=== PATIENT | male | born 1930 | race Caucasian/White ===

== ENCOUNTER 2021-06-22 19:25 | Inpatient (IN) | payer MEDICARE, OTHER ==
[~2021-06-22] VITALS: Ht 175.3 cm; Wt 72.6 kg
[~2021-06-22 19:25] MED LIST: ACID REDUCER 1150 MG PO; METF500; NAPR220 PO; OMEP20ER PO; RANI150; Synthroid25 MCG PO; Zocor20 MG PO
[2021-06-22 20:25] LABS: BASOPHILS ABSOLUTE AUTO 0.04 K/mm3 (0.00-0.23); BASOPHILS PERCENT AUTO 1 % (0-2); EOSINOPHILS ABSOLUTE AUTO 0.51 K/mm3 (0.00-0.68); EOSINOPHILS PERCENT AUTO 7 % (0-6); Hematocrit 30.4 % (37.0-53.0); IMMATURE GRAN ABSOLUTE AUTO 0.02 K/mm3 (0.00-0.10); IMMATURE GRAN PERCENT AUTO 0 % (0-1); LYMPHOCYTES ABSOLUTE AUTO 2.11 K/mm3 (0.84-5.20); LYMPHOCYTES PERCENT AUTO 30 % (21-46); MONOCYTES ABSOLUTE AUTO 0.62 K/mm3 (0.16-1.47); MONOCYTES PERCENT AUTO 9 % (4-13); Mean Corpuscular HGB 31.7 pg (26.0-34.0); Mean Corpuscular HGB Conc 32.9 g/dL (31.5-36.5); Mean Corpuscular Volume 97 fL (80-100); Mean Platelet Volume 9.6 fL (9.1-12.4); NEUTROPHILS ABSOLUTE AUTO 3.65 K/mm3 (1.96-9.15); NEUTROPHILS PERCENT AUTO 53 % (41-73); Platelet Count 211 K/mm3 (150-400); RDW Standard Deviation 49.6 fL (35.1-46.3); Red Blood Cell Count 3.15 M/mm3 (4.30-5.90); White Blood Cell Count 6.95 K/mm3 (4.00-11.30)
[2021-06-22 20:48] LABS: Alanine Aminotransfer (ALT/SGP 24 U/L (12-78); Albumin, Blood 3.5 g/dL (3.4-5.0); Albumin/Globulin Ratio 1.3 (0.8-1.8); Alk Phos 43 U/L (50-136); Anion Gap 5 mmol/L (6-16); Aspartate Aminotrans (AST/SGOT 14 U/L (12-37); Bilirubin, Total 0.2 mg/dL (0.1-1.0); Blood Urea Nitrogen 33 mg/dL (8-24); Bun/Creatinine Ratio 29.2 (12.0-20.0); CO2, Blood 24 mmol/L (21-32); Calcium, Blood 8.2 mg/dL (8.5-10.1); Chloride, Blood 111 mmol/L (98-108); Creatinine, Blood 1.13 mg/dL (0.60-1.20); Globulin, Blood 2.6 g/dL (2.2-4.0); Glomerular Filtration Rate >60 (60-); Glucose, Blood 124 mg/dL (70-99); Potassium, Blood 4.1 mmol/L (3.5-5.5); Sodium, Blood 140 mmol/L (136-145); Total Protein, Blood 6.1 g/dL (6.4-8.2)
--- NOTE | 2021-06-23 02:34 | NUR ---
IV IS ACTUALLY IN THE R[facility] NOT THE R[facility]
--- NOTE | 2021-06-23 02:36 | NUR ---
0220 PT ARRIVED TO ROOM FROM ER IN STABLE CONDITION. DENIES ANY DISCOMFORT AT THIS TIME. DENIES NEED FOR ANYTHING AT THIS TIME. PT IS AAO TO SELF AND . PT HAS A MEMORY RECALL OF ABOUT 2 SECONDS. VERY CONFUSED TO WHERE HIS IS AND WHY HE IS HERE. BED ALARM IS ON.
--- NOTE | 2021-06-23 05:10 | NUR ---
0400 PT IS ONLY ORIENTED TO SELF AND FAMILY ONLY. PT REPEATEDLY GETS OOB WITHOUT CALLING. IS UNABLE TO REDIRECT AND UNABLE TO REMEMBER ANYTHING THAT HE IS TOLD PAST ABOUT 5 SECONDS. PT ALSO KEEPS TALKING ABOUT GOING HOME. PT PLACED IN VEST BETTE. CALL LIGHT IS IN REACH. BED ALARM IS ON.
--- NOTE | 2021-06-23 05:12 | NUR ---
0447 PT FIGURED OUT HOW TO UNTIE HIS VEST BETTE. FOUND PT OUT OF BED, IN THE BATHROOM WITH THE DOOR SHUT. PT WAS WEARING JUST HIS T SHIRT FROM HOME AND WAS WASHING HIS UNDERWEAR IN THE TOILET. GOT THE PT SOME CLEAN PULL UPS AND A BAG FOR HIS SOILED UNDIES. ASSISTED PT BACK INTO BED AND GOT WRIST RESTRAINTS ADDED TO HIS RESTRAINT ORDER. CALL LIGHT IS IN REACH. BED ALARM IS ON.
--- NOTE | 2021-06-23 05:14 | NUR ---
PT IS AAO TO SELF AND FAMILY ONLY, PT HAS ABOUT A 5 SECOND SHORT TERM MEMORY. PT REPEATEDLY GETS OUT OF BED WITHOUT CALLING FOR ASSIST AND TALKS ABOUT WANTING TO GO HOME. FOR PT'S SAFETY FOR HIGH FALL RISK AND RISK OF PT WANDERING OFF OF THE FLOOR, PT WAS PLACED IN A VEST BETTE AND WRIST RESTRAINTS.
--- NOTE | 2021-06-23 05:16 | NUR ---
PT LYING IN BED, PULLING ON RESTRAINTS. CALL LIGHT IS IN REACH. FLUIDS OFFERED. BED ALARM IS ON. NO OTHER CHANGES THIS SHIFT.
[2021-06-23 05:35] LABS: BASOPHILS ABSOLUTE AUTO 0.04 K/mm3 (0.00-0.23); BASOPHILS PERCENT AUTO 1 % (0-2); EOSINOPHILS ABSOLUTE AUTO 0.27 K/mm3 (0.00-0.68); EOSINOPHILS PERCENT AUTO 4 % (0-6); Hemoglobin 9.1 g/dL (13.5-17.5); IMMATURE GRAN ABSOLUTE AUTO 0.03 K/mm3 (0.00-0.10); IMMATURE GRAN PERCENT AUTO 0 % (0-1); LYMPHOCYTES ABSOLUTE AUTO 2.05 K/mm3 (0.84-5.20); LYMPHOCYTES PERCENT AUTO 26 % (21-46); MONOCYTES ABSOLUTE AUTO 0.73 K/mm3 (0.16-1.47); MONOCYTES PERCENT AUTO 9 % (4-13); Mean Corpuscular HGB 31.2 pg (26.0-34.0); Mean Corpuscular HGB Conc 32.5 g/dL (31.5-36.5); Mean Corpuscular Volume 96 fL (80-100); NEUTROPHILS ABSOLUTE AUTO 4.69 K/mm3 (1.96-9.15); NEUTROPHILS PERCENT AUTO 60 % (41-73); Platelet Count 207 K/mm3 (150-400); RDW Coefficient Variation 13.8 % (11.7-14.2); RDW Standard Deviation 48.9 fL (35.1-46.3); Red Blood Cell Count 2.92 M/mm3 (4.30-5.90); White Blood Cell Count 7.81 K/mm3 (4.00-11.30)
[2021-06-23 05:51] LABS: Anion Gap 9 mmol/L (6-16); Blood Urea Nitrogen 31 mg/dL (8-24); Bun/Creatinine Ratio 27.9 (12.0-20.0); CO2, Blood 21 mmol/L (21-32); Calcium, Blood 8.3 mg/dL (8.5-10.1); Chloride, Blood 110 mmol/L (98-108); Creatinine, Blood 1.11 mg/dL (0.60-1.20); Glomerular Filtration Rate >60 (60-); Glucose, Blood 109 mg/dL (70-99); Potassium, Blood 3.9 mmol/L (3.5-5.5); Sodium, Blood 140 mmol/L (136-145)
[2021-06-23 10:28] LABS: Hematocrit 26.9 % (37.0-53.0); Hemoglobin 8.6 g/dL (13.5-17.5)
[2021-06-23 13:33] LABS: Hematocrit 25.7 % (37.0-53.0); Hemoglobin 8.6 g/dL (13.5-17.5)
[2021-06-23 16:35] LABS: Hematocrit 27.4 % (37.0-53.0); Hemoglobin 8.9 g/dL (13.5-17.5)
--- NOTE | 2021-06-23 19:25 | NUR ---
SHIFT SUMMARY: NO ACUTE CHANGES. PT VERY FIDGETY AND TAKING CLOTHES ON AND OFF MULTIPLE TIMES. NOT FOLLOWING DIRECTIONS WELL. BETTE REMAINS IN PLACE. VITAL SIGNS STABLE. NEW IV IN PLACE IN LEFT UPPER ARM. NS RUNNING AT 75 ML/HR. CALL LIGHT IN REACH. REPORTED OFF TO ONCOMING RN
[2021-06-23 23:10] LABS: Source, Urine Clean Catch
[2021-06-23 23:12] LABS: Bilirubin, Urine Neg (Neg); Blood, Urine Neg (Neg); Glucose Qualitative, Urine Neg (Neg); Ketones, Urine Neg (Neg); Leukocyte Esterase, Urine Neg (Neg); Nitrite, Urine Neg (Neg); Protein, Urine Neg (Neg); Specific Gravity, Urine 1.005 (1.003-1.022); Urobilinogen, Urine NORM (Normal); pH, Urine 6.5 (5.0-8.0)
[2021-06-23 23:13] LABS: Appearance, Urine Clear (Clear); Color, Urine Yellow (P-Yellow)
--- NOTE | 2021-06-24 05:05 | NUR ---
SHIFT SUMMARY ASSUMED CARE OF PT AT 1900. PT IS A/O TO SELF AND FAMILY. PT IS VERY DIFFICULT TO REDIRECT AND HAS FLIGHT OF IDEAS. CALLED HOSPITALIST, WHO ORDERED 50MG OF SEROQUEL, THIS DID NOT WORK. PT WAS THEN HELPED TO THE BED WHERE HE HAD TO OF WRIST RESTRAINTS APPLIED ALONG WITH HIS BETTE SO THAT HE WOULD STOP PULLING THE BETTE OFF OVER HIS HEAD. HOSPITALIST NOTIFIED AGAIN WHEN PT WOULD BITE ON HIS RESTRIANTS TO LOOSEN THEM AND PULL HIS HAND OUT. HPSPITALIST ORDERED 5MG IM HALDOL, THIS ALSO HAD LITTLE EFFECT ON THE PT. PT DID NOT SLEEP AT ALL AND CONTINUED TO PULL ON THE RESTRAINTS. HEART SOUNDS REGULAR, LUNG SOUNDS DIMINISHED AT THE BASES. PT WAS CONTIENT TO THE BATHROOM AND THE URINAL. PT HAD NO BLOODY STOOLS OR BLOOD ON HIS ANUS. CALL LIGHT IN REACH, BED IN LOWEST POSTION, BED ALARM ON.
[2021-06-24 08:35] LABS: Hematocrit 20.5 % (37.0-53.0); Hemoglobin 6.8 g/dL (13.5-17.5)
[2021-06-24 18:04] LABS: SARS-Cov-2 (COVID-19) PCR, MMC NEGATIVE (NEGATIVE)
[2021-06-24 18:23] LABS: Hematocrit 30.6 % (37.0-53.0); Hemoglobin 10.2 g/dL (13.5-17.5)
--- NOTE | 2021-06-24 18:42 | NUR ---
PT SEVERELY CONFUSED AND SEVERELY IMPAIRED SHORT-TERM MEMORY; PT DOES NOT FOLLOW COMMANDS AND IS HIGHLY PHYSICALLY IMPULSIVE AND UNREDIRECTABLE, HOWEVER IS VERY POLITE AND PLEASANT; PT ON RA; VSS; RECEIVED 2 UNITS PRBC, FIRST INITIATED AT 1121 AND SECOND INFUSED BY 1530; AT BEDSIDE DURING VISITATION HOURS; PT RECEIVING BOWEL PREP; HALF CONSUMED PO OVER 2 HOURS WITH FREQUENT PROMPTING; NG TUBE INSERTED PER ORDER AT 1535; REST OF BOWEL PREP INSTILLED VIA TUBE; PT ASSISTED TO BSC ASSIST X1-2 SEVERAL TIMES FOR INCREASINGLY LOOSE AND CLEAR BUT RED BM; PT ALSO WAS INCONTINENT OF STOOL AND URINE SEVERAL TIMES IN AM WITH DARK CLOTTED BLOOD IN WATERY BM; PT'S REPORTS NO ADDITIONAL CONCERNS AT THIS TIME
--- NOTE | 2021-06-24 20:00 | NUR ---
PT TO DAYSURGERY BY [facility]. STAFF states colon prep results ARE WNL. History, Chart, Medications and Allergies reviewed before start of procedure. Lungs clear T/O to Auscultation. Patient confirms NPO status and agrees with scheduled surgery. Pre-Op teaching done.
--- NOTE | 2021-06-24 20:30 | NUR ---
06/24/21 2030 Matthias Contreras History, Chart, Medications and Allergies reviewed before start of procedure. MONITOR INTACT WITH CONTINUOUS PULSE OXIMETRY AND INTERMITTENT BP. 3-LEAD EKG REVIEWED WITH PHYSICIAN PRIOR TO START OF PROCEDURE. O2 VIA N/C INTACT THROUGHOUT SEDATION/PROCEDURE. PATIENT DETERMINED TO BE ASA APPROPRIATE FOR PROPOFOL SEDATION PRIOR TO START OF PROCEDURE BY DR. MCMAHON.
--- NOTE | 2021-06-24 20:49 | NUR ---
NGT DC'D PER DR MCMAHON.
[2021-06-25 04:33] LABS: Hematocrit 26.9 % (37.0-53.0)
--- NOTE | 2021-06-25 05:08 | NUR ---
SHIFT SUMMARY PATIENT IS ALERT AND ORIENTED TO SELF ONLY. UNABLE TO REDIRECT. PT CONTINUALLY PULLING AT CORDS AND TRYING TO GET OUT OF BED EVEN WITH THE BILATERAL RESTRAINTS. MEDICATED PER EMAR. 02 SATS 99% ON RA. OFFERED URINAL, WATER, AND REPOSITIONED FREQUENTLY WELL BRIEF CHANGED Q2 AND PRN. NO BM THIS SHIFT. VSS, NO ACUTE CHANGES. CALL LIGHT IN REACH.
--- NOTE | 2021-06-25 08:15 | NUR ---
INITIAL ASSESSMENT: PATIENT IS SITTING UP ON THE EDGE OF THE BED, ASSISTED TO THE BATHROOM 2 PERSON, PATIENT UNSTABLE LEANS FROM SIDE TO SIDE. PT MADE IT BACK TO THE RECLINER. SITTING UP TO EAT BREAKFAST. PT IS ORIENTED TO SELF ONLY. DENIES PAIN AT THIS TIME. HRR. LS CTA, BIOX WNL ON RA. BT+. PPP. VSS. PT DENIES OTHER NEEDS AT THIS TIME. PT IS FREQUENTLY ASKING WHERE IS HIS IS, HE WAS REORIENTED ABOUT EVERY 1-2 MIN. CHAIR ALARM ON FOR SAFETY. RESTRAINTS OFF AT THIS TIME.
--- NOTE | 2021-06-25 09:30 | NUR ---
DR. CHICAS HERE TO SEE THE PATIENT. ORDERS TO RECHECK AN H/H AT 12 IF STABLE PLAN TO DISCHARGE.
[2021-06-25 11:56] LABS: Hematocrit 26.5 % (37.0-53.0); Hemoglobin 9.1 g/dL (13.5-17.5)
--- NOTE | 2021-06-25 12:30 | NUR ---
H/H CONTINUES TO BE 08/19, DR. CHICAS NOTIFIED, STATES HE WILL PLACE DC ORDERS SOON. AT BEDSIDE WITH PATIENT. WILL CONTINUE TO MONITOR.
--- NOTE | 2021-06-25 12:51 | NUR ---
PT AND PROVIDED DISCHARGE INSTRUCTIONS. ALL QUESTIONS ANSWERED. IV REMOVED. PT TAKEN OUT BY LOKESH
--- NOTE | 2021-06-25 13:07 | NUR ---
ADMIT: 06/22/21 DISCHARGE: 06/25/21 DX: Rectal bleeding CC: kwilcox SUKHDEV CALL: Nyasia RESIDENCE: home with spouse CAREGIVER: Nyasia Stock, Spouse / Partner, [phone] DX: HTN, Diverticular disease, GERD, dementia, see list DME: none CCM: none HOME HEALTH: none SUMMARY: 06/25/21- per chart review with Dr. Dwyer, plan is to d/c pt home today this afternoon. Pt discharged home with prior to meeting with them.-vani
== END 2021-06-25 12:51 | disposition home or self-care (01) | DRG 393 ==
LOC: ER 19:25 → PCU 19:26 → MEDS 19:26 → PCU 06-23 16:30
PROVIDERS: Hospitalist; Internal Medicine; Internal Medicine Gastroenterology; Physician Assistant; ADMIT Family Medicine
PROC: 0DJD8ZZ Inspection of Lower Intestinal Tract, Via Natural or Artificial Opening Endoscopic (ICD-10-PCS; 2021-06-24)
PROC: 30233N1 Transfusion of Nonautologous Red Blood Cells into Peripheral Vein, Percutaneous Approach (ICD-10-PCS; principal; 2021-06-24 20:00)
DX: K64.8 Other hemorrhoids (principal); K57.31 Diverticulosis of large intestine without perforation or abscess with bleeding; D62 Acute posthemorrhagic anemia; I10 Essential (primary) hypertension; E11.9 Type 2 diabetes mellitus without complications; Z20.822 Contact with and (suspected) exposure to COVID-19; E78.5 Hyperlipidemia, unspecified; J44.9 Chronic obstructive pulmonary disease, unspecified; E03.9 Hypothyroidism, unspecified; K21.9 Gastro-esophageal reflux disease without esophagitis; M47.817 Spondylosis without myelopathy or radiculopathy, lumbosacral region; M47.812 Spondylosis without myelopathy or radiculopathy, cervical region; N40.0 Benign prostatic hyperplasia without lower urinary tract symptoms; G30.9 Alzheimer's disease, unspecified; K64.4 Residual hemorrhoidal skin tags; F32.9 Major depressive disorder, single episode, unspecified; F02.80 Dementia in other diseases classified elsewhere, unspecified severity, without behavioral disturbance, psychotic disturbance, mood disturbance, and anxiety; M19.90 Unspecified osteoarthritis, unspecified site; Z98.890 Other specified postprocedural states; Z79.84 Long term (current) use of oral hypoglycemic drugs; Z79.899 Other long term (current) drug therapy; Z90.49 Acquired absence of other specified parts of digestive tract; Z87.19 Personal history of other diseases of the digestive system
CPT/HCPCS: 36415; 36430; 80048; 80053; 81003; 82947; 85014; 85018; 85025; 86850; 86900; 86901; 86923; 96374; 96376; 99284; A9270; G0378; J1630; J2250; J2704; J7030; J7040; J7120; P9016; U0004